=== PATIENT | female | born 2000 | race Caucasian/White ===

== ENCOUNTER 2024-12-11 19:37 | Emergency (ER) | payer OTHER, SELFPAY ==
--- NOTE | 2024-12-11 19:45 | ED.SKABFB ---
HPI - Skin/Abscess/Foreign Bdy General Chief complaint: Skin/Abscess/Foreign Body Stated complaint: Rash Time Seen by Provider: 12/11/24 19:46 Source: patient, RN notes reviewed and old records reviewed Mode of arrival: ambulatory Limitations: no limitations History of Present Illness HPI narrative: 24-year-old female presents to the [facility] with sores around her mouth. Patient states that this started as blisters 2 days ago, are now scabbed over areas. Lips appear dry. Nothing in the mouth. Onset (ago): day(s) (2) Treatments prior to arrival: none Related Data Allergies Allergy/AdvReac Type Severity Reaction Status Date / Time lamotrigine (From Lamictal) Allergy Intermediate Rash Verified 12/11/24 19:47 latex Allergy Intermediate Rash Verified 12/11/24 19:47 Review of Systems Review of Systems: All systems reviewed & are unremarkable except as noted in HPI and below Constitutional: Constitutional: Reports no additional constitutional complaints ENT: Reports system reviewed and no additional complaints, except as documented Cardiovascular: Cardiovascular: Reports no additional cardiovascular complaints, Denies chest pain and Denies dyspnea Respiratory: Respiratory: Reports no additional respiratory complaints, Denies chest congestion, Denies cough and Denies dyspnea Musculoskeletal: Musculoskeletal: Reports no additional musculoskeletal complaints Integumentary/Breasts: Skin/Breast: Reports as per HPI PMFSH Comments At the time of my signature, I reviewed and agree with the nursing past medical, surgical, social, and family history. There is no relevant family history pertinent to the patient complaint. Exam Const: General: cooperative, healthy appearing, comfortable, no acute distress, well developed, alert and well nourished Nutritional Appearance: well nourished Orientation/consciousness: patient oriented x3 Limitations: no limitations HENMT: Head: normal to inspection Mouth: Yes other (Scabbed over blisters noted around lips, dry in appearance) Eyes: General: appearance normal, both eyes and all related structures Alignment and Position: alignment normal Neck: Neck: normal visual inspection, full ROM, no lymphadenopathy and no meningeal signs Chest: Chest palpation & inspection: normal inspection of the chest Resp: Effort & Inspection: normal respiratory effort and able to speak in complete sentences Cardio: Rate: regular rate Skin: General skin exam: normal color and no rashes or lesions noted Neuro: General: patient oriented x3, gait normal, moves all extremities and no meningeal signs Cognition (Neuro): normal cognition Speech: normal speech Gait exam (Neuro): Normal gait present Extrem: General: normal to inspection, full ROM, capillary refill normal and normal gait Psych: Appearance: grossly normal and well kempt Mental Status: mental status grossly normal Speech and movement: Normal speech and movement present and Clear speech present Affect: normal affect Attitude: cooperative Course Course Level of Care: Express Care Visit Vital Signs Vital signs: Vital Signs Temperature 98.2 F 12/11/24 19:48 Pulse Rate 112 H 12/11/24 19:48 Respiratory Rate 16 12/11/24 19:48 Blood Pressure 113/81 12/11/24 19:48 Pulse Oximetry 98 12/11/24 19:48 Temperature 98.2 F 12/11/24 19:48 Pulse Rate 112 H 12/11/24 19:48 Respiratory Rate 16 12/11/24 19:48 Blood Pressure 113/81 12/11/24 19:48 Pulse Oximetry 98 12/11/24 19:48 Reviewed MDM - Skin/Abscess/Foreign Bdy MDM Narrative Medical decision making narrative: Patient sitting in exam room. Nontoxic, vitals stable. Patient is in no acute distress, pain patient presents with cold sore since the lips. Exam consistent with herpes simplex or cold sores. Prescribing acyclovir. Denies any previous history Patient appropriate for outpatient treatment with close follow-up Discharge instructions reviewed with patient, as well as provided in writing per nursing staff. The instructions also include specific and strict return/GO TO THE ER as well as f/u information. All questions have been answered, and the patient deny any further questions with discharge and discharge plan. Some parts of this dictation were generated by voice recognition software and may contain typographical and/or grammatical inaccuracies. Differential Diagnosis Differential diagnosis: Likely viral exanthem, herpes zoster, insect bites and impetigo Critical Care Time Critical Care Time Critical Care Time: No Discharge Plan Discharge Clinical Impression: Oral herpes simplex infection Patient Disposition: Home, Self-Care Condition: Stable Instructions: Oral Herpes Infection (ED) Additional Instructions: Using a moisturizing lip mom can help soothe. Do not pick at the scabs Take the antiviral as prescribed Follow-up with primary care provider For new or worsening symptoms go directly to emergency room Patient Language: Tunisian Prescriptions: New acyclovir 400 mg tablet 400 mg PO TID 7 Days Qty: 21 0RF Follow-up/Referrals: PHYSICIAN,FINISHED GOODS INSPECTOR [Primary Care Provider] - Tommie Olson MD [Physician] - Time of Disposition: 19:53
[2024-12-11 19:48] VITALS: BP 113/81; PULSE 112; RESP 16; TEMP 36.8; O2SAT 98
== END 2024-12-11 19:59 | disposition home or self-care (01) ==
PROVIDERS: Emergency Provider Nurse Practitioner
DX: B00.1 Herpesviral vesicular dermatitis (principal)
CPT/HCPCS: 99203; G0463